=== PATIENT | female | born 1965 | race Caucasian/White ===

== ENCOUNTER 2020-02-09 13:43 | Inpatient (IN) | payer OTHER ==
[~2020-02-09] VITALS: Ht 170.2 cm; Wt 82.2 kg
[~2020-02-09 13:43] MED LIST: DULO60CA7 PO; LEVO25TA4 PO; PREG100C PO; PREG50CA PO; ZOLP10TA PO
--- NOTE | 2020-02-09 14:15 | NUR ---
PT IN BED, VSS, O2 @ 2.5, LABS DRAWN, COVID SWAB SENT, NO DISTRESS,
[2020-02-09] MEDS ORDERED: CEFTRIAXONE PMX 1GM/50ML 50 ML IVPB ONE (14:30)
[2020-02-09] MEDS ORDERED: DOXYCYCLINE 100MG TABLET PO ONE (14:30)
[2020-02-09] MEDS ORDERED: DEXAMETHASONE 4 MG/ML, 1ML IVPush ONE (14:30)
[2020-02-09] MEDS ORDERED: DEXAMETHASONE 4 MG/ML, 1ML ONE (14:45)
[2020-02-09] MEDS ORDERED: DOXYCYCLINE 100MG TABLET ONE (14:45)
[2020-02-09] MEDS ORDERED: CEFTRIAXONE PMX 1GM/50ML 50 ML ONE (14:45)
[2020-02-09 14:57] LABS: BASOPHILS % (AUTO) 0 % (0-1); EOSINOPHILS % (AUTO) 0 % (1-7); LYMPHOCYTES % (AUTO) 27 % (22-44); MEAN CORPUSCULAR HEMOGLOBIN 31.8 pg (27.0-34.8); MEAN CORPUSCULAR HGB CONC 34.7 g/dL (32.4-35.8); MEAN PLATELET VOLUME 7.7 fL (7.4-10.4); MONOCYTES % (AUTO) 10 % (2-9); NEUTROPHILS % (AUTO) 62 % (42-75); PLATELET COUNT 194 x10^3/uL (130-400); RED BLOOD COUNT 4.39 x10^6/uL (3.82-5.3); RED CELL DISTRIBUTION WIDTH 12.5 % (9.6-15.2)
[2020-02-09 14:58] LABS: MD NO
[2020-02-09 15:01] LABS: ALANINE AMINOTRANSFERASE 19 U/L (12-78); ALBUMIN 3.2 g/dL (3.4-5.0); ANION GAP 7 mmol/L (5-15); CALCIUM 8.5 mg/dL (8.5-10.1); CHLORIDE 100 mmol/L (98-107)
[2020-02-09 15:08] LABS: ALKALINE PHOSPHATASE 67 U/L (45-117); BILIRUBIN,TOTAL 0.4 mg/dL (0.2-1.0); CREATININE 0.56 mg/dL (0.55-1.02); TOTAL PROTEIN 7.3 g/dL (6.4-8.2)
[2020-02-09 15:26] LABS: D-DIMER (DIC) 0.5 ug/mlFEU (0.00-0.52); PROTIME 10.5 Seconds (9.6-11.5)
[2020-02-09] MEDS ORDERED: METRONIDAZOLE PMX 500MG/100ML 100 ML IV ONE (16:00)
[2020-02-09] MEDS ORDERED: METRONIDAZOLE PMX 500MG/100ML 100 ML ONE (16:22)
[2020-02-09] MEDS ORDERED: ENALAPRILAT 1.25 MG/ML, 2ML IVPush PRN (16:30)
[2020-02-09] MEDS ORDERED: TRAZODONE 50MG TABLET PO PRN (16:30)
[2020-02-09] MEDS ORDERED: ONDANSETRON 2MG/ML, 2ML IVPush PRN (16:30)
[2020-02-09] MEDS ORDERED: GUAIFENESIN/DM 200-20MG, 10ML UDC PO PRN (16:30)
[2020-02-09] MEDS ORDERED: ACETAMINOPHEN 325 MG TABLET PO PRN (16:30)
[2020-02-09] MEDS: DOXYCYCLINE 100 MG in DEXTROSE 5% 250 ML IV SCH (16:30)
[2020-02-09] MEDS ORDERED: ONDANSETRON ODT 4 MG PO PRN (16:30)
[2020-02-09] MEDS: CEFTRIAXONE PMX 1GM/50ML 50 ML IV SCH (16:30)
--- NOTE | 2020-02-09 16:30 | NUR ---
pt in bed no distress
[2020-02-09] MEDS ORDERED: ASCORBIC ACID 500 MG TABLET ONE (16:54)
[2020-02-09] MEDS ORDERED: ENOXAPARIN 40 MG/0.4 ML ONE (16:54)
[2020-02-09] MEDS: METRONIDAZOLE PMX 500MG/100ML 100 ML IV SCH (16:58)
[2020-02-09] MEDS: ENOXAPARIN 40 MG/0.4 ML SQ SCH (16:58)
[2020-02-09] MEDS: ASCORBIC ACID 500 MG TABLET PO SCH (16:59)
[2020-02-09] MEDS ORDERED: DEXTROSE 50%, 50ML SYRINGE IVPush PRN (17:00)
[2020-02-09] MEDS ORDERED: MORPHINE SULFATE 4 MG/ML, 1ML IVPush PRN (17:00)
[2020-02-09] MEDS ORDERED: DEXTROSE 4 GM TAB.CHEW PO PRN (17:00)
[2020-02-09] MEDS ORDERED: GLUCAGON 1 MG IM PRN (17:00)
[2020-02-09] MEDS ORDERED: REMDESIVIR 200 MG in SODIUM CHLORIDE 0.9% 250 ML IVPB ONE (17:30)
--- NOTE | 2020-02-09 18:27 | NUR ---
no change in condition, pt reciving remdesivir. clarified with pharmacy no written consent needed, written education given
--- NOTE | 2020-02-09 18:53 | NUR ---
REPORT OF PT FROM MICHELLE DA SILVA AND ROSHAN AND ASSUMING CARE OF PT AT THIS TIME.
--- NOTE | 2020-02-09 19:13 | NUR ---
DR GERARDO AT BS WITH PT AT THIS TIME.
--- NOTE | 2020-02-09 19:50 | NUR ---
PT PROVIDED BEDSIDE COMMODE AT THIS TIME.
[2020-02-09] MEDS: PREGABALIN 100 MG CAPSULE PO SCH (20:26)
[2020-02-09] MEDS: FAMOTIDINE 20 MG TABLET PO SCH (20:26)
--- NOTE | 2020-02-09 20:47 | NUR ---
YELLOW SHEET SENT TO THE PHARMACY AT THIS TIME FOR PT INSULIN. AWAITING MEDICATION TO BE SENT AT THIS TIME.
[2020-02-09] MEDS: SODIUM CHLORIDE FLUSH 10ML SYR IVF SCH (21:00)
--- NOTE | 2020-02-09 22:03 | NUR ---
FSBS RECHECKED AND DOCUMENTED. HUMALOG TO BE ADMINISTERED PER PROTOCOL PER MAR.
[2020-02-09] MEDS: INSULIN LISPRO 100 UNITS/ML, PEN SQ-INSULIN SCH (22:13)
[2020-02-09 23:25] VITALS: BP 95/63
--- NOTE | 2020-02-09 23:42 | NUR ---
PT TRANSPORTED TO FLOOR IN [facility] BY [employer] AT THIS TIME
[2020-02-10] MEDS ORDERED: METF500T17 PO (00:14)
[2020-02-10] MEDS ORDERED: CYCL-259 PO (00:14)
[2020-02-10] MEDS ORDERED: HYDR-3237 PO (00:14)
[2020-02-10] MEDS: METRONIDAZOLE PMX 500MG/100ML 100 ML IV SCH ×3 (00:52→17:12)
[2020-02-10 00:56] VITALS: BP 99/69
[2020-02-10] MEDS: DOXYCYCLINE 100 MG in DEXTROSE 5% 250 ML IV SCH (04:21)
[2020-02-10 06:13] LABS: BASOPHILS % (AUTO) 0 % (0-1); EOSINOPHILS % (AUTO) 0 % (1-7); LYMPHOCYTES % (AUTO) 30 % (22-44); MEAN CORPUSCULAR HEMOGLOBIN 31.1 pg (27.0-34.8); MEAN CORPUSCULAR HGB CONC 33.9 g/dL (32.4-35.8); MEAN PLATELET VOLUME 7.6 fL (7.4-10.4); MONOCYTES % (AUTO) 11 % (2-9); NEUTROPHILS % (AUTO) 59 % (42-75); PLATELET COUNT 199 x10^3/uL (130-400); RED BLOOD COUNT 4.13 x10^6/uL (3.82-5.3); RED CELL DISTRIBUTION WIDTH 12.4 % (9.6-15.2)
[2020-02-10 06:18] LABS: MD NO
[2020-02-10 06:19] LABS: ALBUMIN 2.9 g/dL (3.4-5.0); ANION GAP 10 mmol/L (5-15); CALCIUM 8.6 mg/dL (8.5-10.1); CHLORIDE 104 mmol/L (98-107)
[2020-02-10 06:20] LABS: INTERNATIONAL NORMALIZED RATIO 0.95 (0.93-1.1); PROTHROMBIN TIME 10.1 Seconds (9.6-11.5)
[2020-02-10 06:26] LABS: ALANINE AMINOTRANSFERASE 13 U/L (12-78); ALKALINE PHOSPHATASE 56 U/L (45-117); BILIRUBIN,TOTAL 0.4 mg/dL (0.2-1.0); CREATININE 0.52 mg/dL (0.55-1.02); TOTAL PROTEIN 6.8 g/dL (6.4-8.2)
[2020-02-10 07:31] VITALS: BP 101/68
[2020-02-10] MEDS: DULOXETINE 30 MG CAPSULE.DR PO SCH (08:17)
[2020-02-10] MEDS: INSULIN LISPRO 100 UNITS/ML, PEN SQ-INSULIN SCH ×4 (08:17→21:09)
[2020-02-10] MEDS: CHOLECALCIFEROL 1,000 UNIT TABLET PO SCH (08:17)
[2020-02-10] MEDS: FAMOTIDINE 20 MG TABLET PO SCH ×2 (08:17→21:08)
[2020-02-10] MEDS: LEVOTHYROXINE 25 MCG TABLET PO SCH (08:17)
[2020-02-10] MEDS: ASCORBIC ACID 500 MG TABLET PO SCH ×2 (08:17→17:01)
[2020-02-10] MEDS: ZINC SULFATE 220 MG CAPSULE PO SCH (08:17)
[2020-02-10] MEDS: SODIUM CHLORIDE FLUSH 10ML SYR IVF SCH ×2 (08:18→21:09)
[2020-02-10] MEDS ORDERED: ZOLPIDEM 10MG TABLET PO SCH (09:00)
[2020-02-10] MEDS: DEXAMETHASONE 4 MG/ML, 1ML IVPush SCH ×2 (11:34→23:25)
[2020-02-10 13:13] VITALS: BP 106/70
[2020-02-10] MEDS: PANTOPRAZOLE 20MG TABLET PO SCH (17:01)
[2020-02-10] MEDS: ENOXAPARIN 40 MG/0.4 ML SQ SCH (17:01)
[2020-02-10] MEDS: CEFTRIAXONE PMX 1GM/50ML 50 ML IV SCH (17:03)
[2020-02-10 20:12] VITALS: BP 113/79
[2020-02-10] MEDS ORDERED: INSULIN GLARGINE 100 UNITS/ML, PEN SQ-INSULIN SCH (21:00)
[2020-02-10] MEDS: PREGABALIN 100 MG CAPSULE PO SCH (21:07)
[2020-02-10] MEDS: CYCLOBENZAPRINE 10 MG TABLET PO SCH (21:07)
[2020-02-10] MEDS: REMDESIVIR 100 MG in SODIUM CHLORIDE 0.9% 250 ML IVPB SCH (21:08)
[2020-02-10] MEDS: HYDROcodone/APAP 5/325 TABLET PO SCH (21:08)
[2020-02-10] MEDS: DOXYCYCLINE 100MG TABLET PO SCH (21:08)
[2020-02-11] MEDS: METRONIDAZOLE PMX 500MG/100ML 100 ML IV SCH ×3 (01:09→16:56)
[2020-02-11 01:11] VITALS: BP 117/78
[2020-02-11] MEDS: PANTOPRAZOLE 20MG TABLET PO SCH ×2 (05:23→15:21)
[2020-02-11 06:39] LABS: BASOPHILS % (AUTO) 0 % (0-1); EOSINOPHILS % (AUTO) 0 % (1-7); LYMPHOCYTES % (AUTO) 19 % (22-44); MEAN CORPUSCULAR HEMOGLOBIN 30.9 pg (27.0-34.8); MEAN CORPUSCULAR HGB CONC 33.9 g/dL (32.4-35.8); MEAN PLATELET VOLUME 7.6 fL (7.4-10.4); MONOCYTES % (AUTO) 10 % (2-9); NEUTROPHILS % (AUTO) 71 % (42-75); PLATELET COUNT 224 x10^3/uL (130-400); RED BLOOD COUNT 4.12 x10^6/uL (3.82-5.3); RED CELL DISTRIBUTION WIDTH 12.4 % (9.6-15.2)
[2020-02-11 06:41] LABS: MD NO
[2020-02-11 06:51] LABS: ANION GAP 6 mmol/L (5-15); CALCIUM 8.4 mg/dL (8.5-10.1); CHLORIDE 105 mmol/L (98-107); CREATININE 0.51 mg/dL (0.55-1.02)
[2020-02-11 06:52] LABS: ALBUMIN 2.7 g/dL (3.4-5.0)
[2020-02-11 07:01] LABS: ALANINE AMINOTRANSFERASE 11 U/L (12-78); ALKALINE PHOSPHATASE 54 U/L (45-117); BILIRUBIN,TOTAL 0.4 mg/dL (0.2-1.0); C-REACTIVE PROTEIN, QUANT 4.26 mg/dL (0.02-0.49); TOTAL PROTEIN 6.4 g/dL (6.4-8.2)
[2020-02-11 07:27] VITALS: BP 111/74
[2020-02-11] MEDS ORDERED: ASCORBIC ACID 250 MG TAB ONE (08:45)
[2020-02-11] MEDS: INSULIN LISPRO 100 UNITS/ML, PEN SQ-INSULIN SCH ×4 (08:54→20:50)
[2020-02-11] MEDS: FAMOTIDINE 20 MG TABLET PO SCH ×2 (08:54→20:50)
[2020-02-11] MEDS: DOXYCYCLINE 100MG TABLET PO SCH ×2 (08:55→20:50)
[2020-02-11] MEDS: ZINC SULFATE 220 MG CAPSULE PO SCH (08:55)
[2020-02-11] MEDS: HYDROcodone/APAP 5/325 TABLET PO SCH ×3 (08:55→20:52)
[2020-02-11] MEDS: LEVOTHYROXINE 25 MCG TABLET PO SCH (08:55)
[2020-02-11] MEDS: SODIUM CHLORIDE FLUSH 10ML SYR IVF SCH ×2 (08:56→21:43)
[2020-02-11] MEDS: DULOXETINE 30 MG CAPSULE.DR PO SCH (08:56)
[2020-02-11] MEDS: DEXAMETHASONE 4 MG/ML, 1ML IVPush SCH (08:56)
[2020-02-11] MEDS: ASCORBIC ACID 500 MG TABLET PO SCH ×2 (08:58→15:21)
[2020-02-11] MEDS: CHOLECALCIFEROL 1,000 UNIT TABLET PO SCH (08:59)
[2020-02-11 12:38] VITALS: BP 102/66
[2020-02-11] MEDS ORDERED: FUROSEMIDE 20 MG/2 ML IV SCH (13:30)
[2020-02-11] MEDS: ENOXAPARIN 40 MG/0.4 ML SQ SCH (15:21)
[2020-02-11] MEDS: CEFTRIAXONE PMX 1GM/50ML 50 ML IV SCH (15:21)
[2020-02-11 19:03] VITALS: BP 111/73
[2020-02-11] MEDS: MAGNESIUM HYDROXIDE 8%, 30ML UDC PO SCH (20:50)
[2020-02-11] MEDS: CYCLOBENZAPRINE 10 MG TABLET PO SCH (20:50)
[2020-02-11] MEDS: PREGABALIN 100 MG CAPSULE PO SCH (20:50)
[2020-02-11] MEDS: INSULIN GLARGINE 100 UNITS/ML, PEN SQ-INSULIN SCH (20:51)
[2020-02-11] MEDS: REMDESIVIR 100 MG in SODIUM CHLORIDE 0.9% 250 ML IVPB SCH (21:43)
[2020-02-12] MEDS: METRONIDAZOLE PMX 500MG/100ML 100 ML IV SCH ×3 (00:39→17:19)
[2020-02-12 00:59] VITALS: BP 98/62
[2020-02-12] MEDS: PANTOPRAZOLE 20MG TABLET PO SCH ×2 (05:42→16:34)
[2020-02-12 05:53] LABS: BASOPHILS % (AUTO) 0 % (0-1); EOSINOPHILS % (AUTO) 0 % (1-7); LYMPHOCYTES % (AUTO) 29 % (22-44); MEAN CORPUSCULAR HEMOGLOBIN 31.3 pg (27.0-34.8); MEAN CORPUSCULAR HGB CONC 34.1 g/dL (32.4-35.8); MEAN PLATELET VOLUME 6.9 fL (7.4-10.4); MONOCYTES % (AUTO) 15 % (2-9); NEUTROPHILS % (AUTO) 55 % (42-75); PLATELET COUNT 255 x10^3/uL (130-400); RED CELL DISTRIBUTION WIDTH 12.6 % (9.6-15.2)
[2020-02-12 05:59] LABS: ANION GAP 6 mmol/L (5-15); CALCIUM 8.3 mg/dL (8.5-10.1); CHLORIDE 106 mmol/L (98-107)
[2020-02-12 06:00] LABS: CREATININE 0.58 mg/dL (0.55-1.02)
[2020-02-12 06:08] LABS: MD NO
[2020-02-12] MEDS: INSULIN LISPRO 100 UNITS/ML, PEN SQ-INSULIN SCH ×4 (08:00→20:40)
[2020-02-12 09:06] VITALS: BP 101/64
[2020-02-12] MEDS: DOXYCYCLINE 100MG TABLET PO SCH ×2 (09:19→20:41)
[2020-02-12] MEDS: ASCORBIC ACID 500 MG TABLET PO SCH ×2 (09:19→16:24)
[2020-02-12] MEDS: FAMOTIDINE 20 MG TABLET PO SCH ×2 (09:19→20:41)
[2020-02-12] MEDS: CHOLECALCIFEROL 1,000 UNIT TABLET PO SCH (09:19)
[2020-02-12] MEDS: DULOXETINE 30 MG CAPSULE.DR PO SCH (09:19)
[2020-02-12] MEDS: ZINC SULFATE 220 MG CAPSULE PO SCH (09:19)
[2020-02-12] MEDS: MAGNESIUM HYDROXIDE 8%, 30ML UDC PO SCH ×2 (09:20→20:41)
[2020-02-12] MEDS: HYDROcodone/APAP 5/325 TABLET PO SCH ×3 (09:20→21:33)
[2020-02-12] MEDS: DEXAMETHASONE 4 MG/ML, 1ML IVPush SCH (09:22)
[2020-02-12] MEDS: SODIUM CHLORIDE FLUSH 10ML SYR IVF SCH ×2 (09:23→20:42)
[2020-02-12] MEDS ORDERED: POTASSIUM CHLORIDE 20 MEQ TAB.ER.PRT PO SCH (11:00)
[2020-02-12 12:22] VITALS: BP 100/70
[2020-02-12] MEDS: CEFTRIAXONE PMX 1GM/50ML 50 ML IV SCH (16:24)
[2020-02-12] MEDS: ENOXAPARIN 40 MG/0.4 ML SQ SCH (16:26)
[2020-02-12] MEDS: BUTALB/APAP/CAFFEINE 50MG/325MG/40MG PO PRN (16:33)
[2020-02-12 20:32] VITALS: BP 129/75
[2020-02-12] MEDS: INSULIN GLARGINE 100 UNITS/ML, PEN SQ-INSULIN SCH (20:41)
[2020-02-12] MEDS: POTASSIUM CHLORIDE 20 MEQ TAB.ER.PRT PO SCH (20:41)
[2020-02-12] MEDS: CYCLOBENZAPRINE 10 MG TABLET PO SCH (20:41)
[2020-02-12] MEDS: PREGABALIN 100 MG CAPSULE PO SCH (20:42)
[2020-02-12] MEDS: REMDESIVIR 100 MG in SODIUM CHLORIDE 0.9% 250 ML IVPB SCH (21:33)
[2020-02-12 23:52] VITALS: BP 118/77
[2020-02-13] MEDS: METRONIDAZOLE PMX 500MG/100ML 100 ML IV SCH ×3 (01:10→17:39)
[2020-02-13] MEDS: PANTOPRAZOLE 20MG TABLET PO SCH ×2 (05:39→16:41)
[2020-02-13 05:53] LABS: BASOPHILS % (AUTO) 0 % (0-1); EOSINOPHILS % (AUTO) 0 % (1-7); LYMPHOCYTES % (AUTO) 38 % (22-44); MEAN CORPUSCULAR HEMOGLOBIN 31.2 pg (27.0-34.8); MEAN CORPUSCULAR HGB CONC 33.8 g/dL (32.4-35.8); MEAN PLATELET VOLUME 7.3 fL (7.4-10.4); MONOCYTES % (AUTO) 17 % (2-9); NEUTROPHILS % (AUTO) 45 % (42-75); PLATELET COUNT 273 x10^3/uL (130-400); RED BLOOD COUNT 4.12 x10^6/uL (3.82-5.3); RED CELL DISTRIBUTION WIDTH 12.3 % (9.6-15.2)
[2020-02-13 05:55] LABS: MD NO
[2020-02-13 06:05] LABS: CHLORIDE 106 mmol/L (98-107)
[2020-02-13 06:28] LABS: ALANINE AMINOTRANSFERASE 14 U/L (12-78); ALBUMIN 2.7 g/dL (3.4-5.0); ALKALINE PHOSPHATASE 56 U/L (45-117); ANION GAP 4 mmol/L (5-15); BILIRUBIN,TOTAL 0.3 mg/dL (0.2-1.0); CALCIUM 8.3 mg/dL (8.5-10.1); CREATININE 0.48 mg/dL (0.55-1.02); TOTAL PROTEIN 6.1 g/dL (6.4-8.2)
[2020-02-13] MEDS: INSULIN LISPRO 100 UNITS/ML, PEN SQ-INSULIN SCH ×4 (07:00→21:39)
[2020-02-13] MEDS: POTASSIUM CHLORIDE 20 MEQ TAB.ER.PRT PO SCH ×2 (09:00→09:19)
[2020-02-13] MEDS: DOXYCYCLINE 100MG TABLET PO SCH ×2 (09:18→21:38)
[2020-02-13] MEDS: FAMOTIDINE 20 MG TABLET PO SCH ×2 (09:18→21:38)
[2020-02-13] MEDS: DULOXETINE 30 MG CAPSULE.DR PO SCH (09:18)
[2020-02-13] MEDS: DEXAMETHASONE 4 MG/ML, 1ML IVPush SCH (09:19)
[2020-02-13] MEDS: HYDROcodone/APAP 5/325 TABLET PO SCH ×3 (09:19→21:38)
[2020-02-13] MEDS: ZINC SULFATE 220 MG CAPSULE PO SCH (09:19)
[2020-02-13] MEDS: CHOLECALCIFEROL 1,000 UNIT TABLET PO SCH (09:19)
[2020-02-13] MEDS: ASCORBIC ACID 500 MG TABLET PO SCH ×2 (09:19→16:40)
[2020-02-13] MEDS: MAGNESIUM HYDROXIDE 8%, 30ML UDC PO SCH ×2 (09:19→21:37)
[2020-02-13 09:20] VITALS: BP 113/72
[2020-02-13] MEDS: SODIUM CHLORIDE FLUSH 10ML SYR IVF SCH ×2 (09:20→21:36)
[2020-02-13] MEDS: BUTALB/APAP/CAFFEINE 50MG/325MG/40MG PO PRN (12:25)
[2020-02-13 13:27] VITALS: BP 97/62
[2020-02-13] MEDS: ENOXAPARIN 40 MG/0.4 ML SQ SCH (16:41)
[2020-02-13] MEDS: CEFTRIAXONE PMX 1GM/50ML 50 ML IV SCH (16:41)
[2020-02-13] MEDS ORDERED: BISACODYL 10 MG SUPP PR PRN (19:30)
[2020-02-13 19:58] VITALS: BP 110/77
[2020-02-13] MEDS: REMDESIVIR 100 MG in SODIUM CHLORIDE 0.9% 250 ML IVPB SCH (21:36)
[2020-02-13] MEDS: PREGABALIN 100 MG CAPSULE PO SCH (21:38)
[2020-02-13] MEDS: CYCLOBENZAPRINE 10 MG TABLET PO SCH (21:38)
[2020-02-13] MEDS: INSULIN GLARGINE 100 UNITS/ML, PEN SQ-INSULIN SCH (21:39)
[2020-02-14 01:09] VITALS: BP 118/80
[2020-02-14] MEDS: METRONIDAZOLE PMX 500MG/100ML 100 ML IV SCH ×3 (01:19→17:21)
[2020-02-14] MEDS: PANTOPRAZOLE 20MG TABLET PO SCH ×2 (06:08→16:19)
[2020-02-14] MEDS: INSULIN LISPRO 100 UNITS/ML, PEN SQ-INSULIN SCH ×4 (07:00→20:57)
[2020-02-14] MEDS: FAMOTIDINE 20 MG TABLET PO SCH ×2 (09:00→20:56)
[2020-02-14] MEDS: DOXYCYCLINE 100MG TABLET PO SCH ×2 (09:14→20:56)
[2020-02-14] MEDS: DEXAMETHASONE 4 MG/ML, 1ML IVPush SCH (09:14)
[2020-02-14] MEDS: DULOXETINE 30 MG CAPSULE.DR PO SCH (09:14)
[2020-02-14] MEDS: SODIUM CHLORIDE FLUSH 10ML SYR IVF SCH ×2 (09:14→20:55)
[2020-02-14] MEDS: ZINC SULFATE 220 MG CAPSULE PO SCH (09:15)
[2020-02-14] MEDS: HYDROcodone/APAP 5/325 TABLET PO SCH ×2 (09:15→16:19)
[2020-02-14] MEDS: CHOLECALCIFEROL 1,000 UNIT TABLET PO SCH (09:16)
[2020-02-14] MEDS: MAGNESIUM HYDROXIDE 8%, 30ML UDC PO SCH ×2 (09:16→20:56)
[2020-02-14] MEDS: ASCORBIC ACID 500 MG TABLET PO SCH ×2 (09:16→16:19)
[2020-02-14 09:43] VITALS: BP 108/71
[2020-02-14 13:58] VITALS: BP 121/78
[2020-02-14] MEDS ORDERED: BISACODYL 10 MG SUPP PR PRN (16:00)
[2020-02-14] MEDS ORDERED: POLYETHYLENE GLYCOL 17 GM PACKET NG PRN (16:00)
[2020-02-14] MEDS ORDERED: LACTULOSE 20 GM/30 ML UDC PO PRN (16:00)
[2020-02-14] MEDS ORDERED: SENNA/DOCUSATE TABLET PO PRN (16:00)
[2020-02-14] MEDS: CEFTRIAXONE PMX 1GM/50ML 50 ML IV SCH (16:20)
[2020-02-14] MEDS: ENOXAPARIN 40 MG/0.4 ML SQ SCH (16:21)
[2020-02-14 19:09] VITALS: BP 126/83
[2020-02-14] MEDS: PREGABALIN 100 MG CAPSULE PO SCH (20:56)
[2020-02-14] MEDS: CYCLOBENZAPRINE 10 MG TABLET PO SCH (20:56)
[2020-02-14] MEDS: INSULIN GLARGINE 100 UNITS/ML, PEN SQ-INSULIN SCH (20:58)
[2020-02-14] MEDS ORDERED: DOCUSATE CALCIUM 240 MG CAPSULE PO SCH (21:00)
[2020-02-15] MEDS: METRONIDAZOLE PMX 500MG/100ML 100 ML IV SCH ×3 (00:42→17:00)
[2020-02-15] MEDS: HYDROcodone/APAP 5/325 TABLET PO SCH ×3 (00:43→17:14)
[2020-02-15 00:49] VITALS: BP 122/81
[2020-02-15] MEDS: PANTOPRAZOLE 20MG TABLET PO SCH ×2 (05:09→17:14)
[2020-02-15] MEDS: INSULIN LISPRO 100 UNITS/ML, PEN SQ-INSULIN SCH ×3 (07:00→18:05)
[2020-02-15 07:21] VITALS: BP 120/77
[2020-02-15] MEDS: MAGNESIUM HYDROXIDE 8%, 30ML UDC PO SCH (09:00)
[2020-02-15] MEDS ORDERED: DOCUSATE 100 MG CAPSULE PO SCH (09:00)
[2020-02-15] MEDS: ASCORBIC ACID 500 MG TABLET PO SCH ×2 (10:03→17:15)
[2020-02-15] MEDS: FAMOTIDINE 20 MG TABLET PO SCH (10:04)
[2020-02-15] MEDS: DULOXETINE 30 MG CAPSULE.DR PO SCH (10:04)
[2020-02-15] MEDS: SODIUM CHLORIDE FLUSH 10ML SYR IVF SCH (10:04)
[2020-02-15] MEDS: DEXAMETHASONE 4 MG/ML, 1ML IVPush SCH (10:04)
[2020-02-15] MEDS: DOXYCYCLINE 100MG TABLET PO SCH (10:04)
[2020-02-15] MEDS: CHOLECALCIFEROL 1,000 UNIT TABLET PO SCH (10:05)
[2020-02-15] MEDS: ZINC SULFATE 220 MG CAPSULE PO SCH (10:05)
[2020-02-15 13:21] VITALS: BP 115/74
[2020-02-15] MEDS ORDERED: DEXA6TAB6 PO (13:39)
[2020-02-15] MEDS ORDERED: CEFD300C37 PO (13:39)
[2020-02-15] MEDS ORDERED: ZINC220C7 PO (13:39)
[2020-02-15] MEDS ORDERED: METR-90 PO (13:39)
[2020-02-15] MEDS ORDERED: ASCO500T9 PO (13:39)
[2020-02-15] MEDS ORDERED: DOXY100T PO (13:39)
[2020-02-15] MEDS ORDERED: INSU100I11 SQ-INSULIN (16:01)
[2020-02-15] MEDS ORDERED: INSU100I13 SQ (16:01)
[2020-02-15] MEDS: ENOXAPARIN 40 MG/0.4 ML SQ SCH (17:15)
[2020-02-15] MEDS: CEFTRIAXONE PMX 1GM/50ML 50 ML IV SCH (17:15)
== END 2020-02-15 18:00 | disposition home or self-care (01) | DRG 177 ==
LOC: ED 14:37 → SUATTDRO 16:13 → EDIP 16:56 → 3N 23:54
PROVIDERS: ADMIT Hospitalist; ATTEND Internal Medicine
PROC: XW033E5 Introduction of Remdesivir Anti-infective into Peripheral Vein, Percutaneous Approach, New Technology Group 5 (ICD-10-PCS; principal; 2020-02-10)
DX: U07.1 COVID-19 (principal); J12.89 Other viral pneumonia; J96.01 Acute respiratory failure with hypoxia; E03.9 Hypothyroidism, unspecified; E11.65 Type 2 diabetes mellitus with hyperglycemia; E87.6 Hypokalemia; G89.29 Other chronic pain; M79.7 Fibromyalgia; T38.0X5A Adverse effect of glucocorticoids and synthetic analogues, initial encounter; E11.21 Type 2 diabetes mellitus with diabetic nephropathy; Z87.891 Personal history of nicotine dependence; Z90.710 Acquired absence of both cervix and uterus; Z79.899 Other long term (current) drug therapy; Z79.01 Long term (current) use of anticoagulants; Z79.891 Long term (current) use of opiate analgesic; Z87.442 Personal history of urinary calculi; Z83.3 Family history of diabetes mellitus; Z82.49 Family history of ischemic heart disease and other diseases of the circulatory system; Z79.84 Long term (current) use of oral hypoglycemic drugs; Z88.2 Allergy status to sulfonamides
CPT/HCPCS: 36415; 71045; 71275; 74176; 80048; 80053; 82728; 82962; 83605; 83615; 83735; 84145; 85025; 85049; 85379; 85384; 85610; 85730; 86140; 87040; 87635; 93005; 96365; 96367; 96375; 99285; G0378; J0696; J1100; J1650; J7060; J1815; J1940; J7050

== ENCOUNTER 2020-03-06 14:50 | Emergency (ER) | payer OTHER ==
[~2020-03-06] VITALS: Ht 170.2 cm; Wt 79.9 kg
[~2020-03-06 14:50] MED LIST changes: +ASCO500T9 PO; +CEFD300C37 PO; +CYCL-259 PO; +DEXA6TAB6 PO; +DOXY100T PO; +HYDR-3237 PO; +INSU100I11 SQ-INSULIN; +INSU100I13 SQ; +METF500T17 PO; +METR-90 PO; +ZINC220C7 PO
--- NOTE | 2020-03-06 16:02 | NUR ---
PLUMBER CUB: PT TO ROOM FROM LOBBY
[2020-03-06 17:10] LABS: ALANINE AMINOTRANSFERASE 27 U/L (12-78); ALBUMIN 3.3 g/dL (3.4-5.0); ANION GAP 6 mmol/L (5-15); CALCIUM 8.7 mg/dL (8.5-10.1); CHLORIDE 104 mmol/L (98-107); CREATININE 0.66 mg/dL (0.55-1.02)
[2020-03-06 17:12] LABS: BASOPHILS % (AUTO) 1 % (0-1); EOSINOPHILS % (AUTO) 4 % (1-7); LYMPHOCYTES % (AUTO) 45 % (22-44); MEAN CORPUSCULAR HEMOGLOBIN 32.4 pg (27.0-34.8); MEAN CORPUSCULAR HGB CONC 33.8 g/dL (32.4-35.8); MEAN PLATELET VOLUME 7.6 fL (7.4-10.4); MONOCYTES % (AUTO) 11 % (2-9); NEUTROPHILS % (AUTO) 40 % (42-75); PLATELET COUNT 327 x10^3/uL (130-400); RED BLOOD COUNT 4.04 x10^6/uL (3.82-5.3); RED CELL DISTRIBUTION WIDTH 14.3 % (9.6-15.2)
[2020-03-06 17:15] LABS: ALKALINE PHOSPHATASE 64 U/L (45-117); BILIRUBIN,TOTAL 0.3 mg/dL (0.2-1.0); TROPONIN I < 0.015 ng/mL (0.000-0.045)
[2020-03-06 17:20] LABS: MD NO
[2020-03-06 18:51] VITALS: BP 125/78
== END 2020-03-06 18:55 | disposition home or self-care (01) ==
LOC: ED 18:30
DX: R07.89 Other chest pain (principal); R10.9 Unspecified abdominal pain; R00.0 Tachycardia, unspecified; R05 Cough; E03.9 Hypothyroidism, unspecified; E11.9 Type 2 diabetes mellitus without complications; Z90.710 Acquired absence of both cervix and uterus; Z87.891 Personal history of nicotine dependence
CPT/HCPCS: 36415; 71045; 80053; 83690; 83880; 84484; 85025; 85379; 93005; 99285